=== PATIENT | female | born 1975 | race Caucasian/White ===

== ENCOUNTER 2016-07-24 09:16 | Emergency (ER) | payer OTHER ==
[2016-07-24 09:37] VITALS: RESP 20
--- NOTE | 2016-07-24 10:22 | UCPHY ---
H & P Time Seen by Provider: 07/24/16 09:40 Patient Type: New HPI/ROS: CHIEF COMPLAINT: Toe pain History by patient HISTORY OF PRESENT ILLNESS: 41-year-old woman presents complaining of pain in her right 4th toe after striking it against the side of her balcony yesterday. She has been able to bear weight but it hurts. She notices it swollen. She denies any other pain or injury. She had previous surgery on this toes for hammertoes. REVIEW OF SYSTEMS: As in HPI, and all other systems reviewed and are negative Smoking Status: Never smoked Constitutional: Initial Vital Signs Temperature (C) 36.7 C 07/24/16 09:34 Heart Rate 113 H 07/24/16 09:34 Respiratory Rate 20 07/24/16 09:34 Blood Pressure 139/91 H 07/24/16 09:34 O2 Sat (%) 98 07/24/16 09:34 O2 Delivery Mode Room Air Allergies/Adverse Reactions: No Known Allergies Allergy (Unverified 07/24/16 09:33) Home Medications: Medication Instructions Recorded Acyclovir 07/24/16 Adderall 10 mg Tablet 07/24/16 Multivitamin 07/24/16 novoLOG 07/24/16 MDM/Departure - MDM Diagnostics: Imaging Impressions Toe X-Ray 07/24/16 09:38 Impression: 1. No acute osseous abnormality seen right fourth toe. 2. Findings suspicious for previous surgical resection of the distal aspect of the right third fourth and fifth toe middle phalanx ED Course/Re-evaluation: Patient presents with pain and swelling of right toe after stubbing yesterday. She is ambulatory. X-ray shows no evidence of fracture. There is some swelling and tenderness and ecchymosis around the base of her nail and we discussed how she may developed some nail damage from this. We discussed home care - Depart Disposition: Home, Routine, Self-Care Clinical Impression: Contusion, toe Qualifiers: Encounter type: initial encounter Toe: lesser toe Damage to nail status: without damage Laterality: right Qualified Code(s): S90.121A - Contusion of right lesser toe(s) without damage to nail, initial encounter Condition: Good Instructions: Foot Contusion (ED) Additional Instructions: You were seen by Dr. Anuja Diaz today. Return for any worsening or new concerns. Take Tylenol or ibuprofen as needed for pain and ice your toe as needed. Referrals: Teresa Bradford MD [Primary Care Provider] - As per Instructions - PQRS PQRS Measurement: NA
[2016-07-24 10:23] VITALS: BP 128/67; PULSE 91; TEMP 97.9; O2SAT 95
== END 2016-07-24 10:25 | disposition home or self-care (01) ==
LOC: CED 09:16
DX: S90.121A Contusion of right lesser toe(s) without damage to nail, initial encounter (principal); W22.09XA Striking against other stationary object, initial encounter; Y92.019 Unspecified place in single-family (private) house as the place of occurrence of the external cause; Y99.8 Other external cause status
CPT/HCPCS: 73660-PO; G0463-PO

== ENCOUNTER → 2016-09-07 | Outpatient (CLI) | payer OTHER | LOC: FCPNEURO 20:00 | PROVIDERS: ATTEND Psychiatry & Neurology Sleep Medicine | DX: G47.419 Narcolepsy without cataplexy (principal) ==